=== PATIENT | female | born 2000 | race Two or more races ===

== ENCOUNTER 2024-05-28 13:15 | Inpatient (IN) | payer OTHER ==
[~2024-05-28] VITALS: Ht 167.6 cm; Wt 104.3 kg
[2024-06-10] MEDS ORDERED: RINGERS SOLUTION,LACTATED 1,000 ML IV SCH (23:45)
[2024-06-10] MEDS ORDERED: AMPICILLIN SODIUM 2,000 MG VIAL IV STA (23:46)
[2024-06-10 23:50] VITALS: BP 124/64
[2024-06-11] VITALS (7 sets, daily range): BP systolic 112–135; BP diastolic 58–71
[2024-06-11] MEDS ORDERED: PRENATAL TABLE1 EAC1 PO
[2024-06-11] MEDS ORDERED: AMPICILLIN TRI500 MG PO
[2024-06-11 00:32] LABS: URINE APPEARANCE Clear; URINE BILIRRUBIN Negative (NEGATIVE); URINE BLOOD Negative; URINE COLOR Yellow; URINE GLUCOSE Negative (NEGATIVE); URINE KETONE Negative (NEGATIVE); URINE LEUKOCYTE Negative; URINE NITRATE Negative; URINE PROTEIN Negative (NEGATIVE)
[2024-06-11 00:33] LABS: HEMATOCRIT 33.1 % (36.0-45.00); MEAN CELL VOLUME 88.6 fL (80.00-100.00); MEAN CORPUSCULAR HEMOGLOBIN 29.5 pg (27.00-32.0); MEAN CORPUSCULAR HGB CONC 33.3 g/dl (32.0-36.0); PLATELET COUNT 317 K/uL (150-450); RED BLOOD COUNT 3.73 M/uL (4.00-6.00); RED CELL DISTRIBUTION WIDTH 16.5 % (11.5-14.5); URINE BACTERIA 287.6 uL (0.0-1933); URINE EPITHELIAL CELLS 20.5 uL (0.0-38.8); URINE RBC 9.1 uL (0.0-20.8); URINE WBC 10.2 uL (0.0-23.2)
[2024-06-11 01:02] LABS: URINE CAST 0.14 uL (0.0-1.40)
[2024-06-11 01:14] LABS: INR < 0.93; PARTIAL THROMBOPLASTIN TIME 24.5 SECONDS (22.0-34.0); PROTHROMBIN TIME 9.7 SECONDS (9.0-11.5)
[2024-06-11 01:19] LABS: ALBUMIN 2.7 gm/dL (3.4-5.0); BILIRUBIN TOTAL 0.69 mg/dL (0.3-1.2); CALCIUM 9.3 mg/dL (8.5-10.1); CREATININE SERUM 0.61 mg/dL (0.55-1.02); GFR 123.81; GLOBULINA 3.8 G/DL (2.4-3.5); POTASSIUM 4.1 mEq/L (3.5-5.1); TOTAL PROTEIN 6.5 gm/dL (6.4-8.2)
[2024-06-11] MEDS ORDERED: AMPICILLIN SODIUM 1,000 MG VIAL IV SCH (04:00)
[2024-06-11] MEDS ORDERED: MORPHINE SULFATE 4 MG/ML CARTRIDGE IV ONE (04:30)
[2024-06-11] MEDS ORDERED: CHLORHEXIDINE GLUCONATE 120 ML BOTTLE TOP ONE ×2 (06:08→08:45)
[2024-06-11] MEDS ORDERED: LIDOCAINE HCL 1% 10ML VIAL ONE (06:08)
[2024-06-11] MEDS ORDERED: ERYTHROMYCIN BASE OPHT 1GM EACH TUBE OP ONE ×2 (06:08→08:45)
[2024-06-11] MEDS ORDERED: OXYTOCIN 20 UNITS/1000ML RL PIGGYBAG IV ONE ×2 (06:08→08:45)
[2024-06-11] MEDS ORDERED: OxyCODONE HCL/APAP UD (PERCOCET) PO PRN (08:45)
[2024-06-11] MEDS ORDERED: LIDOCAINE HCL 1% 10ML VIAL IJ ONE (08:45)
[2024-06-11] MEDS ORDERED: ACETAMINOPHEN 325 MG TABLET PO PRN (08:45)
[2024-06-11] MEDS ORDERED: BENZOCAINE/MENTHOL 90 ML BOTTLE TOP SCH (09:00)
[2024-06-11] MEDS ORDERED: DOCUSATE SODIUM 100MG CAP PO SCH (09:00)
[2024-06-11] MEDS ORDERED: HYDROCORTISONE 2.5% 30 GM TUBE RECTAL SCH (09:00)
[2024-06-12 01:00] VITALS: BP 112/72
[2024-06-12 02:00] LABS: HEMOGLOBIN 9.3 g/dL (12.0-15.00); MEAN CELL VOLUME 87.4 fL (80.00-100.00); MEAN CORPUSCULAR HGB CONC 34.3 g/dl (32.0-36.0); PLATELET COUNT 282 K/uL (150-450); RED BLOOD COUNT 3.09 M/uL (4.00-6.00); RED CELL DISTRIBUTION WIDTH 17.2 % (11.5-14.5)
[2024-06-12 07:47] VITALS: BP 98/61
[2024-06-12 16:00] VITALS: BP 112/70
[2024-06-13 00:24] VITALS: BP 109/71
[2024-06-13 08:27] VITALS: BP 133/78
== END 2024-06-13 12:10 | disposition home or self-care (01) | DRG 807 ==
LOC: OB/GYN 06-06 13:15 → LDR 06-10 23:43 → OB/GYN 06-10 23:43
PROVIDERS: Obstetrics & Gynecology; ADMIT Specialist; ATTEND Specialist
PROC: 4A1HXCZ Monitoring of Products of Conception, Cardiac Rate, External Approach (ICD-10-PCS; 2024-06-10)
PROC: 10E0XZZ Delivery of Products of Conception, External Approach (ICD-10-PCS; principal; 2024-06-11)
PROC: 0KQM0ZZ Repair Perineum Muscle, Open Approach (ICD-10-PCS; 2024-06-11)
DX: O70.1 Second degree perineal laceration during delivery (principal); Z37.0 Single live birth; O99.824 Streptococcus B carrier state complicating childbirth; Z3A.40 40 weeks gestation of pregnancy